=== PATIENT | male | born 1995 | race Caucasian/White ===

== ENCOUNTER 2020-01-01 07:55 | Emergency (ER) | payer OTHER ==
[~2020-01-01] VITALS: Ht 177.8 cm; Wt 80.3 kg
[2020-01-01 07:58] VITALS: BP 128/82
--- NOTE | 2020-01-01 09:46 | NUR ---
MD Turcios at bedside to update pt with results and POC.
== END 2020-01-01 09:55 | disposition home or self-care (01) ==
LOC: ED 09:49
DX: N50.811 Right testicular pain (principal)
CPT/HCPCS: 76870; 99284